=== PATIENT | female | born 2000 | race Caucasian/White ===

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

== ENCOUNTER 2022-04-15 12:55 | Emergency (ER) | payer BC, SELFPAY ==
[2022-04-15 12:58] VITALS: BP 123/75; PULSE 97; RESP 16; TEMP 36.8; O2SAT 99
--- NOTE | 2022-04-15 12:59 | ED.FEMALEGU ---
HPI - Female Genitourinary General Chief complaint: Urogenital-Female Stated complaint: poss uti Time Seen by Provider: 04/15/22 13:00 Source: patient and RN notes reviewed History of Present Illness HPI Narrative: patient is an 20-year-old female who presents to urgent care with complaints of burning with urination and urinary frequency. Patient states that it started last night and she noticed some blood when wiping. Patient also reports of some nausea without vomiting or abdominal pain. Patient has had a history of UTIs with the last 1 being approximately in September or October. Denies any known fevers. Patient is not taking anything [id number] for her symptoms. No other acute complaints. No acute distress noted. Patient aware of the plan of care. Some parts of this dictation were generated by voice recognition software and may contain typographical and/or grammatical inaccuracies. Related Data Home Medications Medication Instructions Recorded Confirmed norelgestromin 150 mcg-e.estradiol patch 04/15/22 04/15/22 35 mcg/24 hr weekly transderm patch (Xulane) omeprazole 40 mg capsule,delayed 40 mg PO BID 04/15/22 04/15/22 release sertraline 50 mg tablet 50 mg PO DAILY 04/15/22 04/15/22 Allergies Allergy/AdvReac Type Severity Reaction Status Date / Time No Known Allergies Allergy Verified 04/15/22 13:12 Review of Systems Review of Systems: CONSTITUTIONAL: Denies fever, chills, or sweats. EYES: Denies visual changes, redness, or discharge. ENT: Denies rhinorrhea, congestion, sore throat, or otalgia. CARDIOVASCULAR: Denies chest pain, palpitations, or edema. RESPIRATORY: Denies cough or dyspnea. GASTROINTESTINAL: Denies abdominal pain, nausea, vomiting, or diarrhea. GENITOURINARY: Reports of dysuria and urinary frequency SKIN: Denies rash or itching. MUSCULOSKELETAL: Denies back pain, joint pain, or myalgia. NEUROLOGIC: Denies headache, numbness, or weakness. All other systems reviewed are negative, except as documented in HPI. PMFSH Comments At the time of my signature, I reviewed and agree with the nursing past medical, surgical, social, and family history. There is no relevant family history pertinent to the patient complaint. Exam Narrative: GENERAL: This is a well-nourished, well-developed patient, in no apparent distress. HEAD: normocephalic, atraumatic. EYES: PERRL. Sclera clear/white. Vision is grossly intact. EARS: External ears normal NOSE: External nose normal with no obvious nasal discharge, nares without redness, no rhinorrhea. THROAT: Mucous membranes moist NECK: Neck supple CARDIOVASCULAR: Regular rate and rhythm without murmurs, gallops, or rubs. RESPIRATORY: Clear to auscultation. Breath sounds equal bilaterally. No wheezes, rales, or rhonchi. GASTROINTESTINAL: Abdomen soft, mild suprapubic tenderness, nondistended. Bowel sounds are active. SKIN: warm, intact with no suspicious lesions or rash, good texture and turgor. NEURO: awake, alert, and oriented to person, place and time. There were no obvious focal neurologic abnormalities. EXTREMITIES: No clubbing, cyanosis, or edema. BACK: negative bilateral CVA tenderness Course Course Level of Care: Express Care Visit Vital Signs Vital signs: Vital Signs Temperature 98.2 F 04/15/22 12:58 Pulse Rate 97 04/15/22 12:58 Respiratory Rate 16 04/15/22 12:58 Blood Pressure 123/75 04/15/22 12:58 Pulse Oximetry 99 04/15/22 12:58 Oxygen Delivery Room Air 04/15/22 12:58 Temperature 98.2 F 04/15/22 12:58 Pulse Rate 97 04/15/22 12:58 Respiratory Rate 16 04/15/22 12:58 Blood Pressure 123/75 04/15/22 12:58 Pulse Oximetry 99 04/15/22 12:58 Oxygen Delivery Room Air 04/15/22 12:58 reviewed MDM - Female Genitourinary MDM Narrative Medical decision making narrative: reviewed lab results with the patient. She is aware that urinalysis may be indicative of a urinary tract infection with sca
== END 2022-04-15 13:26 | disposition home or self-care (01) ==
PROVIDERS: Emergency Provider Nurse Practitioner Family
DX: N39.0 Urinary tract infection, site not specified (principal)
CPT/HCPCS: 81003; 87086; 87088; 87106; 99213; G0463

== ENCOUNTER 2022-05-03 19:20 | Emergency (ER) | payer BC, SELFPAY ==
[2022-05-03 19:24] VITALS: BP 115/67; PULSE 80; RESP 16; TEMP 36.5; O2SAT 100
[2022-05-03 19:30] VITALS: BP 115/67; PULSE 80; RESP 16; TEMP 36.5; O2SAT 100
--- NOTE | 2022-05-03 19:35 | ED.URI ---
HPI - URI/Sore Throat General Chief Complaint: Urogenital-Female Stated Complaint: Vaginal Issue Time Seen by Provider: 05/03/22 19:30 Source: patient Mode of arrival: ambulatory Limitations: no limitations History of Present Illness HPI Narrative: Rikki is a 21-year-old female patient presenting to the clinic today with complaints of vaginal discharge. She reports that the discharge is white clumpy and she is having vaginal itching. States that she was treated for a possible urinary tract infection back on April 15 and had gotten 1 Diflucan however this did not resolve her symptoms. Her urine culture came back positive for candidas. Is also reporting some urinary frequency. She denies any fever, chills, abdominal pain, or back pain Related Data Home Medications Medication Instructions Recorded Confirmed omeprazole 40 mg capsule,delayed 40 mg PO BID 04/15/22 05/03/22 release sertraline 50 mg tablet 50 mg PO DAILY 04/15/22 05/03/22 norelgestromin 150 mcg-e.estradiol See Rx Instructions .Route .COMPLEX 05/03/22 05/03/22 35 mcg/24 hr weekly transderm patch (Xulane) Allergies Allergy/AdvReac Type Severity Reaction Status Date / Time No Known Allergies Allergy Verified 05/03/22 19:26 Review of Systems Review of Systems: Pertinent positives per HPI. Patient denies any fever, chills, rash, headache, visual changes, dizziness, cough, runny nose, sore throat, shortness of breath, chest pain, palpitations, nausea, vomiting, diarrhea, constipation, abdominal pain, or any urinary issues. PMFSH Comments At the time of my signature, I reviewed and agree with the nursing past medical, surgical, social, and family history. There is no relevant family history pertinent to the patient complaint. Exam Narrative: General: Well-developed, well nourished, in no apparent distress. Head: Normocephalic, atraumatic. Cardio: Regular rate and rhythm, s1 and s2 normal, no murmur appreciated. Resp: Clear to auscultation bilaterally, no rhonchi, rales, wheezing or rubs. Abdomen: Soft, pliable, bowel sounds present in all quadrants, non-tender to palpation, no organomegly, no CVAT tenderness. : Deferred, patient reports white clumpy discharge- probable yeast Course Course Emergency Course: Portions of this record may have been created with voice recognition software. Level of Care: Express Care Visit Vital Signs Vital signs: Vital Signs Temperature 36.5 C 05/03/22 19:24 Pulse Rate 80 05/03/22 19:24 Respiratory Rate 16 05/03/22 19:24 Blood Pressure 115/67 05/03/22 19:24 Pulse Oximetry 100 05/03/22 19:24 Oxygen Delivery Room Air 05/03/22 19:24 Temperature 36.5 C 05/03/22 19:30 Pulse Rate 80 05/03/22 19:30 Respiratory Rate 16 05/03/22 19:30 Blood Pressure 115/67 05/03/22 19:30 Pulse Oximetry 100 05/03/22 19:30 Oxygen Delivery Room Air 05/03/22 19:30 Vital signs reviewed MDM - URI/Sore Throat MDM Narrative Medical decision making narrative: at the time of visit patient is resting comfortably on the exam table. UA was positive for 2+ bacteria- I feel that this may be contaminant as she did have a positive urine dip last month and was positive for yeast in her urine culture. I suspect the patient has a vaginal yeast infection. Prescription for Diflucan was sent to pharmacy and supportive measures were discussed with the patient she voiced understanding of discharge instructions and agrees to treatment plan. Differential Diagnosis Differential diagnosis: Likely other ( Urinary tract infection, vaginal yeast infection) Discharge Plan Discharge Clinical Impression: Candidiasis of vagina Patient Disposition: Home, Self-Care Condition: Stable Instructions: Antibiotic Form, Yeast Infection (ED) Additional Instructions: U/a shows 2+ leukocytes. We will send for culture Take Diflucan as prescribed Increase fluids and stay well hydrated Wipe front
== END 2022-05-03 19:40 | disposition home or self-care (01) ==
PROVIDERS: Emergency Provider Nurse Practitioner Family; PCP Internal Medicine
DX: B37.31 Acute candidiasis of vulva and vagina (principal); K21.9 Gastro-esophageal reflux disease without esophagitis
CPT/HCPCS: 81003; 87086; 87088; 99213; G0463

== ENCOUNTER 2022-10-02 15:20 | Emergency (ER) | payer OTHER, SELFPAY ==
[2022-10-02 15:33] VITALS: BP 104/68; PULSE 70; RESP 16; TEMP 36.5; O2SAT 100
--- NOTE | 2022-10-02 15:35 | ED.FEMALEGU ---
HPI - Female Genitourinary General Chief complaint: Urogenital-Female Stated complaint: yeast infection Time Seen by Provider: 10/02/22 15:50 Source: patient, RN notes reviewed and old records reviewed Mode of arrival: ambulatory Limitations: no limitations History of Present Illness HPI Narrative: 21-year-old female presents to the [facility] with concerns of either a UTI, BV or yeast infection. Also states she has a bump down there. Denies any chances of STDs, denies any chances of . Related Data Home Medications Medication Instructions Recorded Confirmed omeprazole 40 mg capsule,delayed 40 mg PO BID 04/15/22 10/02/22 release sertraline 50 mg tablet 50 mg PO DAILY 04/15/22 10/02/22 norelgestromin 150 mcg-e.estradiol See Rx Instructions .Route .COMPLEX 05/03/22 10/02/22 35 mcg/24 hr weekly transderm patch (Xulane) Allergies Allergy/AdvReac Type Severity Reaction Status Date / Time No Known Allergies Allergy Verified 10/02/22 15:35 Review of Systems Review of Systems: All systems reviewed & are unremarkable except as noted in HPI and below Constitutional: Constitutional: Reports no additional constitutional complaints Eyes: Eyes: Reports no additional eye complaints ENT: Reports system reviewed and no additional complaints, except as documented Cardiovascular: Cardiovascular: Reports no additional cardiovascular complaints, Denies chest pain and Denies dyspnea Respiratory: Respiratory: Reports no additional respiratory complaints, Denies chest congestion, Denies cough and Denies dyspnea Gastrointestinal: Gastrointestinal: Reports no additional gastrointestinal complaints, Denies abdominal pain, Denies nausea and Denies vomiting Genitourinary: Genitourinary: Reports as per HPI Musculoskeletal: Musculoskeletal: Reports no additional musculoskeletal complaints Integumentary/Breasts: Skin/Breast: Reports system reviewed and no additional complaints, except as docu Neurologic: Reports system reviewed and no additional complaints, except as documented Psychiatric: Psychiatric: Reports no additional psychiatric complaints Allergic/Immunologic: Allergic/Immunologic: Reports no additional allergic/immunologic complaints PMFSH Comments At the time of my signature, I reviewed and agree with the nursing past medical, surgical, social, and family history. There is no relevant family history pertinent to the patient complaint. Exam Const: General: cooperative, healthy appearing, comfortable, no acute distress, well developed, alert and well nourished Nutritional Appearance: well nourished Orientation/consciousness: patient oriented x3 Limitations: no limitations HENMT: Head: normal to inspection Ears: hearing grossly normal bilaterally and external ears normal Face/Nose/Sinus: Normal external nose present, Normal nares present, Normal nasal mucous membranes and turbinates present and normal facial exam Face and sinus: normal facial exam Mouth: Yes lip normal and Yes moist mucous membranes Eyes: General: appearance normal, both eyes and all related structures Alignment and Position: alignment normal Periorbital: periorbital findings normal Pupils: Equal, round and reactive pupils present EOM: EOMs intact bilaterally Neck: Neck: normal visual inspection, full ROM, no lymphadenopathy and no meningeal signs Chest: Chest palpation & inspection: normal inspection of the chest Resp: Effort & Inspection: normal respiratory effort and able to speak in complete sentences Auscultation: clear to auscultation bilaterally, no crackles, no rales, no rhonchi and no wheezes Cardio: Rate: regular rate Rhythm: regular rhythm : Other: chaperoned by Rebecca RN ingrown hair to the left pubis area, red, inflamed, erythema measuring 2 by 0.5 cm, fluctuant center with an ingrown hair. Thin white discharge noted. On exam did not do complete exam, just external due to looking at the infected are
== END 2022-10-02 16:24 | disposition home or self-care (01) ==
PROVIDERS: Emergency Provider Nurse Practitioner; PCP Internal Medicine
DX: N76.0 Acute vaginitis (principal); L73.1 Pseudofolliculitis barbae; K21.9 Gastro-esophageal reflux disease without esophagitis
CPT/HCPCS: 81003; 87070; 87075; 87147; 87181; 87186; 87205; 99213; G0463

== ENCOUNTER 2022-11-24 08:15 | Emergency (ER) | payer OTHER, SELFPAY ==
[2022-11-24 08:20] VITALS: BP 127/81; PULSE 82; RESP 16; TEMP 36.3; O2SAT 100
--- NOTE | 2022-11-24 08:37 | ED.SKABFB ---
HPI - Skin/Abscess/Foreign Bdy General Chief complaint: Skin/Abscess/Foreign Body Stated complaint: Hives/throat allergic reaction Time Seen by Provider: 11/24/22 08:27 Source: patient, RN notes reviewed and old records reviewed Mode of arrival: ambulatory Limitations: no limitations History of Present Illness HPI narrative: 22 year old female who [facility] with complaints of having scattered raised rash all over that started yesterday around 2 or 3 PM which is itchy. Patient reports no new foods, laundry detergent, lotions, soaps, foods, no animal exposure and has not been in stark or out in yard working. Patient states that she had TB skin test 2 days ago that is only thing new with no redness around TB skin test site noted. Patient works in [employer] setting and reports that none of her residents have had rashes that she is aware of. Patient has even nonlabored respirations with no tachypnea. Patient did take some Benadryl yesterday evening. MD complaint: rash Onset (ago): day(s) (since yesterday afternoon) Location: generalized Quality: pruritic Treatments prior to arrival: Benadryl Related Data Home Medications Medication Instructions Recorded Confirmed omeprazole 40 mg capsule,delayed 40 mg PO BID 04/15/22 10/02/22 release sertraline 50 mg tablet 50 mg PO DAILY 04/15/22 10/02/22 norelgestromin 150 mcg-e.estradiol See Rx Instructions .Route .COMPLEX 05/03/22 10/02/22 35 mcg/24 hr weekly transderm patch (Xulancurry) amitriptyline 50 mg tablet mg 11/24/22 aripiprazole 10 mg tablet mg 11/24/22 escitalopram oxalate 10 mg tablet mg 11/24/22 Allergies Allergy/AdvReac Type Severity Reaction Status Date / Time No Known Allergies Allergy Verified 10/02/22 15:35 Review of Systems Review of Systems: CONSTITUTIONAL: Denies fever, chills, or sweats. CARDIOVASCULAR: Denies chest pain, palpitations, or edema. RESPIRATORY: Denies cough or dyspnea. SKIN: Reports generalized red scattered rash that is itchy,no pustule formation MUSCULOSKELETAL: Denies joint pain or myalgia. NEUROLOGIC: Denies headache, numbness, or weakness. All systems reviewed & are unremarkable except as noted in HPI and below PMFSH Past Medical History Medical History Anxiety and depression GERD (gastroesophageal reflux disease) Social History Social History (Updated 11/25/22 @ 06:43 by Dot Muse NP) Smoking status: Never smoker Alcohol intake: never Substance use type: does not use Gender identity (if verbalized by the patient): Female Comments At time of signature, agree with nursing past medical, surgical, social and family history. There is no relevant family history pertinent to the presenting complaint Exam Narrative: GENERAL: Well-appearing, well-nourished, and in no acute distress. HEAD: Normocephalic, atraumatic. EYES: PERRLA, conjunctivae clear, and EOMI. ENT: Mucous membranes moist. Oropharynx without edema, erythema or lesions. NECK: Supple. No lymphadenopathy CHEST: Clear to auscultation. No respiratory distress.no tachypnea SAO2 100% on room air HEART: Regular rate and rhythm. SKIN: Warm, dry.?Red scattered rash that is generalized and itchy no pustule formation generalized to body NEURO:? Alert and oriented x3. PSYCH: Normal mood and affect Course Course Emergency Course: Patient is aware of diagnosis, understands and agrees to treatment plan.? Anticipatory guidance given.? Patient agrees to follow-up as directed and is aware of reasons to seek care at the emergency department. Portions of this record may have been created with voice recognition software Level of Care: Express Care Visit Vital Signs Vital signs: Vital Signs Temperature 36.3 C L 11/24/22 08:20 Pulse Rate 82 11/24/22 08:20 Respiratory Rate 16 11/24/22 08:20 Blood Pressure 127/81 11/24/22 08:20 Pulse Oximetry 100 08
== END 2022-11-24 08:48 | disposition home or self-care (01) ==
PROVIDERS: Emergency Provider Registered Nurse; PCP Internal Medicine
DX: L25.9 Unspecified contact dermatitis, unspecified cause (principal); F41.9 Anxiety disorder, unspecified; F32.A Depression, unspecified; K21.9 Gastro-esophageal reflux disease without esophagitis
CPT/HCPCS: 99213; G0463

== ENCOUNTER 2022-12-10 17:42 | Emergency (ER) | payer OTHER, SELFPAY ==
[2022-12-10 17:50] VITALS: BP 104/64; PULSE 84; RESP 18; TEMP 36.7; O2SAT 99
--- NOTE | 2022-12-10 17:52 | ED.UPPEXIN ---
HPI - Extremity Injury (Upper) General Stated Complaint: lt shoulder pain Source: patient and RN notes reviewed History of Present Illness HPI narrative: 22 yo F presents to urgent care with complaints of left upper shoulder pain. Pt states she was lifting a pt Sudeep night at work when she felt a pain in her left posterior/superior shoulder. Pt reports the pain is constant. Denies any numbness or tingling. Pt states the pain will sometimes radiate downward. Denies any treatment at home. Has no other complaints. Related Data Home Medications Medication Instructions Recorded Confirmed omeprazole 40 mg capsule,delayed 40 mg PO BID 04/15/22 10/02/22 release sertraline 50 mg tablet 50 mg PO DAILY 04/15/22 10/02/22 norelgestromin 150 mcg-e.estradiol See Rx Instructions .Route .COMPLEX 05/03/22 10/02/22 35 mcg/24 hr weekly transderm patch (Xulane) aripiprazole 10 mg tablet mg 11/24/22 amitriptyline 50 mg tablet 50 mg PO DAILY 12/10/22 12/10/22 escitalopram oxalate 20 mg tablet mg 12/10/22 12/10/22 sertraline 50 mg tablet mg 12/10/22 Allergies Allergy/AdvReac Type Severity Reaction Status Date / Time No Known Allergies Allergy Verified 12/10/22 17:57 Review of Systems Review of Systems: CONSTITUTIONAL: Denies fever, chills, or sweats. EYES: Denies visual changes, redness, or discharge. ENT: Denies otalgia and sore throat CARDIOVASCULAR: Denies chest pain, palpitations, or edema. RESPIRATORY: Denies cough or dyspnea. GASTROINTESTINAL: Denies abdominal pain, nausea, vomiting, or diarrhea. GENITOURINARY: Denies dysuria or hematuria. SKIN: Denies rash or itching. MUSCULOSKELETAL: Left upper shoulder pain NEUROLOGIC: Denies headache, numbness, or weakness. Pertinent positives per HPI. [facility] Past Medical History Medical History Anxiety and depression GERD (gastroesophageal reflux disease) Social History Social History (Updated 11/25/22 @ 06:43 by Dot Muse NP) Smoking status: Never smoker Alcohol intake: never Substance use type: does not use Gender identity (if verbalized by the patient): Female Comments At the time of my signature, I reviewed and agree with the nursing past medical, surgical, social, and family history. There is no relevant family history pertinent to the patient complaint. Exam Narrative: GENERAL: This is a well-nourished, well-developed patient, in no apparent distress. HEAD: normocephalic, atraumatic. EYES: Sclera clear/white. Vision is grossly intact. EARS: External ears normal, auditory canals clear and without drainage. Hearing grossly intact. NOSE: External nose normal with no obvious nasal discharge, nares without redness, no rhinorrhea. THROAT: Mucous membranes moist, posterior pharynx clear. NECK: Neck supple, non-tender without lymphadenopathy, masses or thyromegaly. CARDIOVASCULAR: Regular rate RESPIRATORY: No respiratory distress SKIN: warm, intact with no suspicious lesions or rash, good texture and turgor. NEURO: awake, alert, and oriented to person, place and time. There were no obvious focal neurologic abnormalities. EXTREMITIES: No clubbing, cyanosis, or edema. No joint tenderness, effusion, or edema noted. Mild tenderness to left trapezius muscle with palpation. BACK: Nontender without deformity or crepitus. No flank tenderness. Course Course Level of Care: Express Care Visit Vital Signs Vital signs: reviewed MDM - Extremity Injury (Upper) MDM Narrative Medical decision making narrative: Do not use your left arm for 1 week to allow rest and healing. May take 600 mg of ibuprofen every 6 hours if needed WITH FOOD. May also take 650 mg Tylenol every 6 hours if needed as well. May apply hot pad for 15 minutes, followed by light stretching for 15 minutes, followed by cold application for 15 minutes. If your symptoms persist past 1 week with conservative treatment, follow up wit
== END 2022-12-10 18:05 | disposition home or self-care (01) ==
PROVIDERS: Emergency Provider Nurse Practitioner Family; PCP Internal Medicine
DX: S46.812A Strain of other muscles, fascia and tendons at shoulder and upper arm level, left arm, initial encounter (principal); X50.0XXA Overexertion from strenuous movement or load, initial encounter; Y99.0 Civilian activity done for income or pay; K21.9 Gastro-esophageal reflux disease without esophagitis; F41.9 Anxiety disorder, unspecified; F32.A Depression, unspecified
CPT/HCPCS: 99212; A4565; G0463

== ENCOUNTER 2023-03-14 09:27 | Emergency (ER) | payer OTHER, SELFPAY ==
[2023-03-14 09:31] VITALS: BP 140/67; PULSE 75; RESP 16; TEMP 36.6; O2SAT 99
--- NOTE | 2023-03-14 09:45 | ED.FEMALEGU ---
HPI - Female Genitourinary General Chief complaint: RADIOLOGY ASST Stated complaint: poss yeast infection Time Seen by Provider: 03/14/23 09:28 Source: patient Mode of arrival: ambulatory Limitations: no limitations History of Present Illness HPI Narrative: Rikki is a 22-year-old female patient presenting to clinic today with complaints of vaginal discharge since yesterday. She reports her last sexual intercourse with her partner was yesterday. [place] was painful at that time. States that she is having some white chunky vaginal discharge coming from the vagina. Also reports some burning with urination. No concern for sexually transmitted infection however she would like us to test her today. She has history of BV and yeast infections in the past. Related Data Home Medications Medication Instructions Recorded Confirmed norelgestromin 150 mcg-e.estradiol See Rx Instructions .Route .COMPLEX 05/03/22 03/14/23 35 mcg/24 hr weekly transderm patch (Xulane) Allergies Allergy/AdvReac Type Severity Reaction Status Date / Time No Known Allergies Allergy Verified 03/14/23 09:45 Review of Systems Review of Systems: Pertinent positives per HPI. Patient denies any fever, chills, rash, headache, visual changes, dizziness, cough, shortness of breath, chest pain, palpitations, nausea, vomiting, diarrhea, constipation, abdominal pain. PMFSH Past Medical History Medical History Anxiety and depression GERD (gastroesophageal reflux disease) Social History Social History Smoking status: Never smoker Alcohol intake: never Substance use type: does not use Gender identity (if verbalized by the patient): Female Comments At the time of my signature, I reviewed and agree with the nursing past medical, surgical, social, and family history. There is no relevant family history pertinent to the patient complaint. Exam Narrative: General: Well-developed, well nourished, in no apparent distress Head: Normocephalic, atraumatic. Cardio: Regular rate and rhythm, s1 and s2 normal, no murmur appreciated. Resp: Clear to auscultation bilaterally, no rhonchi, rales, wheezing or rubs. Abdomen: Soft, pliable, bowel sounds present in all quadrants, non-tender to palpation, no CVAT tenderness. : Pelvic exam performed with (Nanci RT) at bedside. Verbal consent obtained from patient. Normal external female genitalia without lesions or masses, Urinary meatus: patent without discharge, Vagina: No lesions or masses, copious white clumpy discharge Cervix: pink without mass, lesions, discharge, or tenderness. Adnexa: without palpable mass or tenderness. Course Course Emergency Course: Portions of this record may have been created with voice recognition software. Level of Care: Express Care Visit Vital Signs Vital signs: Vital Signs Temperature 36.6 C 03/14/23 09:31 Pulse Rate 75 03/14/23 09:31 Respiratory Rate 16 03/14/23 09:31 Blood Pressure 140/67 03/14/23 09:31 Pulse Oximetry 99 03/14/23 09:31 Oxygen Delivery Room Air 03/14/23 09:31 Temperature 36.6 C 03/14/23 09:31 Pulse Rate 75 03/14/23 09:31 Respiratory Rate 16 03/14/23 09:31 Blood Pressure 140/67 03/14/23 09:31 Pulse Oximetry 99 03/14/23 09:31 Oxygen Delivery Room Air 03/14/23 09:31 Vital signs reviewed MDM - Female Genitourinary MDM Narrative Medical decision making narrative: At the time of visit patient is resting comfortably on exam table. Patient agrees to pelvic exam in the clinic today. Swabs for BV and yeast were obtained. Will send testing on dirty urine for chlamydia, gonorrhea, and Trichomonas. UA dip was completed and shows 2+ leukocytes. Will send in prescription for Macrobid, Flagyl, and Diflucan. Supportive measures were discussed with the patient she voiced understanding discharge
[2023-03-14 19:41] LABS: Trichomonas Vag PCR NOT DETECTED (NOT DETECTE)
[2023-03-14 20:04] LABS: Chlamydia trachomatis NOT DETECTED (NOT DETECTE); Neisseria gonorrhoeae PCR NOT DETECTED (NOT DETECTE)
== END 2023-03-14 10:00 | disposition home or self-care (01) ==
PROVIDERS: Emergency Provider Nurse Practitioner Family; PCP Internal Medicine
DX: N39.0 Urinary tract infection, site not specified (principal)
CPT/HCPCS: 81003; 87070; 87086; 87088; 87147; 87491; 87591; 87661; 99214; G0463